=== PATIENT | female | born 1940 | race Caucasian/White ===

== ENCOUNTER 2017-01-16 06:13 | Emergency (ER) | payer OTHER, BC ==
[~2017-01-16] VITALS: Ht 157.5 cm; Wt 63.0 kg
--- NOTE | ~2017-01-16 | EKG ---
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
[~2017-01-16 06:13] MED LIST: AMBIEN 5 MG TABL5 M1 PO; ASPIR 8181 MG PO; AVINZA 30 MG CA30 MG PO; METOPROLOL SUCC50 MG PO; MORPHINE SULFAT15 M4 PO; PROTONIX40 MG PO; ZANAFLEX4 MG PO
[2017-01-16 07:15] LABS: BASOPHILS 0.9 % (0.0-2.0); EOSINOPHILS 5.2 % (0.0-3.0); HEMATOCRIT 33.4 % (37.0-47.0); HEMOGLOBIN 11.8 gm/dL (12.0-15.0); LYMPHOCYTES 27.6 % (24.0-44.0); MCH 33.9 pg (26.0-34.0); MCHC 35.4 g/dL (28.0-37.0); MCV 95.8 fL (80.0-100.0); MONOCYTES 11.7 % (1.0-8.0); PLATELET COUNT 176 thou/uL (150-400); POLYS 54.6 % (36.0-66.0); RBC 3.49 mil/uL (4.20-5.00); RDW 14.4 % (10.5-14.5); WBC 5.6 thou/uL (4.0-11.0)
[2017-01-16 07:16] LABS: MANUAL DIFF NO
[2017-01-16 07:20] LABS: CALCIUM 8.3 mg/dL (8.5-10.1); CREATININE 0.8 mg/dL (0.6-1.3)
[2017-01-16 07:23] LABS: POTASSIUM 4.6 mmol/L (3.5-5.1)
== END 2017-01-16 09:40 | disposition home or self-care (01) ==
LOC: ER 06:13
PROVIDERS: Emergency Medicine
DX: R06.00 Dyspnea, unspecified (principal); R41.0 Disorientation, unspecified; M19.90 Unspecified osteoarthritis, unspecified site; T65.91XA Toxic effect of unspecified substance, accidental (unintentional), initial encounter; Y92.89 Other specified places as the place of occurrence of the external cause

== ENCOUNTER 2017-05-26 09:53 | Emergency (ER) | payer OTHER, BC ==
[~2017-05-26] VITALS: Ht 160 cm; Wt 64.4 kg
--- NOTE | ~2017-05-26 | EKG ---
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
[2017-05-26 10:50] LABS: MCH 33.9 pg (26.0-34.0); MCHC 34.2 g/dL (28.0-37.0); MCV 99.2 fL (80.0-100.0); RBC 4.14 mil/uL (4.20-5.00); RDW 13.4 % (10.5-14.5); WBC 7.1 thou/uL (4.0-11.0)
[2017-05-26 11:01] LABS: APTT 22.3 Seconds (24.5-32.8); PROTIME 10.4 Seconds (9.3-11.4)
[2017-05-26 11:03] LABS: ANION GAP 6 mmol/L (7-16); BUN 10 mg/dL (7-18); CALCIUM 8.8 mg/dL (8.5-10.1); CHLORIDE 108 mmol/L (98-107); CO2 26 mmol/L (21-32); CREATININE 0.6 mg/dL (0.6-1.0); GLUCOSE 104 mg/dL (74-106); POTASSIUM 4.6 mmol/L (3.5-5.1); SODIUM 140 mmol/L (136-145)
[2017-05-26 11:12] LABS: TROPONIN-I < 0.04 ng/mL (<0.04-0.07)
[2017-05-26] MEDS ORDERED: ANTIVERT25 MG PO (13:34)
== END 2017-05-26 13:35 | disposition home or self-care (01) ==
LOC: ER 09:53
PROVIDERS: Emergency Medicine
DX: H81.399 Other peripheral vertigo, unspecified ear (principal); M19.90 Unspecified osteoarthritis, unspecified site; Z98.890 Other specified postprocedural states; Z79.82 Long term (current) use of aspirin; F10.10 Alcohol abuse, uncomplicated